=== PATIENT | female | born 1995 | race Hispanic/Latino ===

== ENCOUNTER 2018-12-04 13:51 | Outpatient (CLI) | payer BC ==
--- NOTE | 2018-12-04 14:32 | ULT ---
Exam: Thyroid ultrasound HISTORY: Bernard's COMPARISON: none TECHNIQUE: Sagittal and transverse imaging of the thyroid gland is FINDINGS: Homogeneous echotexture. No solid or cystic masses. Thyroid isthmus measures 0.2 cm Right thyroid lobe measures 5.3 x 1.6 x 1.6 cm. Left thyroid lobe measures 4.9 x 1.6 x 1.6 cm. IMPRESSION: Unremarkable thyroid ultrasound.
== END 2018-12-04 13:52 | disposition home or self-care (01) ==
LOC: BICULT 13:51
PROVIDERS: ATTEND Internal Medicine
DX: E06.3 Autoimmune thyroiditis (principal)
CPT/HCPCS: 76536

== ENCOUNTER 2019-01-29 19:57 | Emergency (ER) | payer BC ==
--- NOTE | 2019-01-29 21:02 | RAD ---
XR Knee Rt 4 View STANDARD History: Knee pain Comparison: None. Findings: No significant joint effusion. No acute fracture or malalignment. Soft tissues are unremark able. Impression: No acute osseous abnormality
== END 2019-01-29 21:42 | disposition home or self-care (01) ==
LOC: ERS 19:57
DX: M25.561 Pain in right knee (principal); W22.8XXA Striking against or struck by other objects, initial encounter